=== PATIENT | male | born 1985 | race Caucasian/White ===

== ENCOUNTER 2016-11-20 21:07 | Emergency (ER) | payer SELFPAY ==
[~2016-11-20] VITALS: Ht 177.8 cm; Wt 100.4 kg
[~2016-11-20 21:07] MED LIST: HYDR25TA PO
[2016-11-20 22:15] VITALS: BP 138/42
--- NOTE | 2016-11-20 22:46 | PHYS DOC ---
General Chief Complaint: BACK PAIN - NO INJURY Stated Complaint: BACK PAIN Time Seen by MD: 22:27 Source: patient Problems: History of Present Illness Initial Comments Patient here for back pain. Patient had chronic problems for the last number of years with low back pain from known scoliosis. He's had an MRI and is has known bulging disks. He's been seen his primary care physician, is going to physical therapy, has had injections without help. He is barely scheduled for pain management next month. He is here now because of continued increasing back pain. It is located in the low back bilaterally, left greater than right, is now starting to creep up the right side as well. This is similar to his usual back pain which is getting worse. There is no new history of injury or trauma to the back. He's had no fever or chills. There is no URI symptoms or cough. There's no chest pain or shortness of breath. He has no nausea vomiting or abdominal pain. There is no abdominal pain. There's no change amount of bladder habits. He says he is going to the bathroom more frequently than normal, but has no dysuria and no incontinence. He denies any acute focal extremity or neurologic complaints. He says he has had some problems with shakiness and lower extremities at night, and is apparently being seen by a neurologist for evaluation Parkinson's. This is not acutely changed or different anyway. Patient 's been using muscle relaxer and a heating pad for this at home with some help. He says when he was a heating pad on all night feels better the morning. He is not on any current pain medication. He says tramadol as worked for him in the past. He notes no other increased or decreasing factors. Patient's past medical history is remarkable for chronic back pain issues, but no issues for which she seeking disability from blindness, and lower extremity weakness. He chews tobacco. He is nonuser of ethanol. Allergies: Coded Allergies: No Known Allergies (Verified Allergy, Unknown, 09/30/16) Past Medical History Medical History: other Surgical History: noncontributory Social History Smoker: chew Alcohol: none Review of Systems All Other Systems: Reviewed and Negative Physical Exam General Appearance: WD/WN, no apparent distress Neck: full range of motion, supple, normal inspection Respiratory: lungs clear, normal breath sounds, no respiratory distress Cardiovascular: regular rate, rhythm, no edema Gastrointestinal: non tender, soft, no organomegaly Back: no CVA tenderness, vertebral tenderness, other Extremities: non-tender, normal inspection, no pedal edema Neurologic/Psychiatric: no motor/sensory deficits, alert, normal mood/affect, oriented x 3 Skin: normal color Lymphatic: no adenopathy Comments Generally this is a well-developed well-nourished white male in no acute distress. Vitals are as noted. Pertinent findings on physical exam shows a chest clear. Cardiac exam shows regular rate and rhythm without murmur. The abdomen is soft and nontender without mass or megaly. There is no peritoneal findings. Back shows no distinct CVA tenderness. He is mildly tender over the lower lumbar midline spine and the bilateral low lumbar paraspinal regions, left greater than right. There is no signs of trauma noted. Externally show no rash, cyanosis, or edema. Lower extremity DTRs are 1+ over 4+ equal bilaterally. Strength 5 over 5 = system. There are no gross sensory deficits. Patient has some subjective weakness on straight leg raising which is chronic as noted in history, but there is no back pain on straight leg raising. He is awake alert oriented and cooperative. Remainder of physical exam is clinically unremarkable. Orders, Labs, Meds Old charts note so prior ER visit last month for restless leg syndrome. I discussed with the patient most likely cause visits to discomfort is probably exacerbation of his chronic low back pain. There is no history of new injury or trauma, no significant associated symptoms, and his neurologic exam is fully intact. No think any labs or imaging would be indicated at this time. I discussed with him and eventually happy to try to offer him some pain relief until his pain management appointment, and he does state Ultram has worked for him in the past. He denies any seizure history. I think it's reasonable to give him a supply of these tablets, have written a prescription for 60 Ultram to get him through the next several weeks. He has Flexeril at home already and is encouraged to continue to use that as well as a heating pad. I did provide cautious about leaving the heating pad on all night because of haines. He voices understanding need to follow up with primary care as well as pain management in November as planned or return to the ER sooner as needed for worsening anyway. He looks well, no acute discomfort distress, neurologically intact, okay for discharge home at this time. JOHN BROWN MD Nov 20, 2016 22:46
== END 2016-11-20 22:50 | disposition home or self-care (01) ==
LOC: ER 21:07
DX: G89.29 Other chronic pain (principal); M54.5 Low back pain; R53.1 Weakness; F17.220 Nicotine dependence, chewing tobacco, uncomplicated
CPT/HCPCS: 99283

== ENCOUNTER 2016-12-26 14:16 | Emergency (ER) | payer SELFPAY ==
[2016-12-26] MEDS ORDERED: DEXAMETHASONE SOD PHOS 4 MG/ML VIAL IM ONE (15:00)
[2016-12-26] MEDS ORDERED: DEXAMETHASONE SOD PHOS 10 MG/ML VIAL IM ONE (15:00)
[2016-12-26] MEDS ORDERED: ORPHENADRINE CITRATE 60 MG/2 ML VIAL. IM ONE (15:00)
[2016-12-26] MEDS ORDERED: HYDROcodone/APAP 7.5/325MG 1 TAB TABLET PO ONE (15:00)
--- NOTE | 2016-12-26 15:01 | PHYS DOC ---
Past History Past Medical History: Depression, Other Past Surgical History: Other Alcohol Use: Occasionally Drug Use: None Adult General Chief Complaint Chief Complaint: LOWER BACK PAIN OR INJURY HPI HPI Patient is a 31 year old male who presents with complaint of low back pain. Patient states that he has had low back problems for the past year. Patient states that he had MRI imaging approximately one year ago which showed bulging disks in multiple levels of his lumbar spine. Patient states that he has been receiving physical therapy and multiple modalities of medication treatment during the past year. Patient states that his symptoms started worsening 3 days ago. Patient states that his pain became worse at work, causing him to leave work early due to his pain. Patient rates pain currently is 8 out of 10 on my history taking. Patient states that he is having pain that radiates down into his right foot which has been present over the past year. Patient denies any loss of bowel or bladder control and denies saddle anesthesia. Review of Systems Review of Systems Constitutional: Denies fever or chills [] Eyes: Denies change in visual acuity, redness, or eye pain [] HENT: Denies nasal congestion or sore throat [] Respiratory: Denies cough or shortness of breath [] Cardiovascular: Denies chest pain or edema [] GI: Denies abdominal pain, nausea, vomiting, bloody stools or diarrhea [] : Denies dysuria or hematuria [] Musculoskeletal: Low back pain [] Integument: Denies rash or skin lesions [] Neurologic: Denies headache, focal weakness or sensory changes [] Current Medications Current Medications Current Medications Medications (Trade) Dose Ordered Sig/Miki Start Time Stop Time Status Last Admin Dose Admin Acetaminophen/ Hydrocodone Bitart (Lortab 7.5/325) 1 tab 1X ONCE 12/26/16 15:00 12/26/16 15:01 Dexamethasone Sodium Phosphate (Decadron) 12 mg 1X ONCE 12/26/16 15:00 12/26/16 15:01 Orphenadrine Citrate (Norflex) 60 mg 1X ONCE 12/26/16 15:00 12/26/16 15:01 Allergies Allergies Allergies Coded Allergies Type Severity Reaction Last Updated Verified No Known Allergies Allergy Unknown 09/30/16 Yes Physical Exam Physical Exam Constitutional: Alert, afebrile, appears in moderate discomfort. [] HENT: Normocephalic, atraumatic, bilateral external ears normal, oropharynx moist, no oral exudates, nose normal. [] Eyes: PERRLA, EOMI, conjunctiva normal, no discharge. [] Neck: Normal range of motion, no tenderness, supple, no stridor. [] Cardiovascular:Heart rate regular rhythm, no murmur [] Lungs & Thorax: Bilateral breath sounds clear to auscultation [] Abdomen: Bowel sounds normal, soft, no tenderness, no masses, no pulsatile masses. [] Skin: Warm, dry, no erythema, no rash. [] Back: Right lower lumbar paraspinous muscle tenderness to palpation, no midline tenderness, no flank ecchymosis, positive straight leg test in right lower extremity. [] Extremities: No tenderness, no cyanosis, no clubbing, ROM intact, no edema. [] Neurologic: Alert and oriented X 3, normal motor function, normal sensory function, no focal deficits noted. [] Current Patient Data Vital Signs Vital Signs Date Time Temp Pulse Resp B/P (MAP) Pulse Ox O2 Delivery O2 Flow Rate FiO2 12/26/16 15:00 0 97 Room Air Lab Results Current Medications Medications (Trade) Dose Ordered Sig/Miki Route PRN Reason Start Time Stop Time Status Last Admin Dose Admin Orphenadrine Citrate (Norflex) 60 mg 1X ONCE IM 12/26/16 15:00 12/26/16 15:01 DC 12/26/16 15:00 Dexamethasone Sodium Phosphate (Decadron) 12 mg 1X ONCE IM 12/26/16 15:00 12/26/16 15:00 DC Acetaminophen/ Hydrocodone Bitart (Lortab 7.5/325) 1 tab 1X ONCE PO 12/26/16 15:00 12/26/16 15:01 DC 12/26/16 15:00 Dexamethasone Sodium Phosphate (Decadron) 12 mg 1X ONCE IM 12/26/16 15:00 12/26/16 15:01 DC 12/26/16 15:00 EKG EKG Not performed [] Radiology/Procedures Radiology/Procedures Not performed [] Course & Med Decision Making Course & Med Decision Making Pertinent Labs and Imaging studies reviewed. (See chart for details) Patient was given IM Decadron, Norflex, and oral hydrocodone. On reevaluation, patient's pain has improved at this time. The patient will be discharged with prescriptions for [place] and prednisone taper. Advise follow-up in 3-5 days patient's primary doctor and return to emergency department for any worsening symptoms. Patient voiced understanding and in agreement with treatment plan. Dragon Disclaimer Dragon Disclaimer This chart was dictated in whole or in part using Voice Recognition software in a busy, high-work load, and often noisy Emergency Department environment. It may contain unintended and wholly unrecognized errors or omissions. Departure Departure: Impression: Primary Impression: Acute exacerbation of chronic low back pain Disposition: HOME, SELF-CARE Condition: IMPROVED Referrals: ANGELA MOORE MD (PCP) Patient Instructions: Back Pain, Adult Additional Instructions: Follow-up with primary doctor in 3-5 days for reevaluation. Return to the emergency department for any worsening symptoms. Scripts Hydrocodone Bit/Acetaminophen (NORCO 5-325 TABLET) 1 Each Tablet 1-2 TAB PO Q4-6HRS Y for PAIN, #20 TAB Prov: HAYLEE WORLEY MD 12/26/16 Prednisone (PREDNISONE) 10 Mg Tablet 10 MG PO UD for PREDNISONE TAPER, #39 TAB 0 Refills Take 3 tablets by mouth twice a day for 3 days, then take 2 tablets by mouth twice a day for 3 days, then take 1 tablet by mouth twice a day for 3 days, then take 1 tablet by mouth daily x 3 days, then stop. Prov: HAYLEE WORLEY MD 12/26/16 HAYLEE WORLEY MD December 26, 2016 15:01
[2016-12-26] MEDS ORDERED: HYDR-971 PO (15:31)
[2016-12-26] MEDS ORDERED: PRED-220 PO (15:31)
[2016-12-26 15:42] VITALS: BP 118/71
== END 2016-12-26 15:42 | disposition home or self-care (01) ==
LOC: ER 14:16
DX: G89.29 Other chronic pain (principal); M54.5 Low back pain
CPT/HCPCS: 96372; 99284; J1100; J2360

== ENCOUNTER 2017-04-18 12:52 | Emergency (ER) | payer SELFPAY ==
[~2017-04-18 12:52] MED LIST changes: +HYDR-971 PO; +PRED-220 PO
[2017-04-18 13:00] VITALS: BP 150/91
[2017-04-18] MEDS ORDERED: PRED-220 PO (13:43)
--- NOTE | 2017-04-18 13:43 | PHYS DOC ---
Past History Past Medical History: Depression, Other Past Surgical History: Other Alcohol Use: Occasionally Drug Use: Marijuana Adult General Chief Complaint Chief Complaint: BACK PAIN - NO INJURY HPI HPI Patient is a 31-year-old man who has chronic back pain, presents with "really bad" pain in his lower back which goes down at the back of his right leg for about one week. The pain shooting down his right leg is new for him, he says he has never had it before. He does see Dr. Valverde for back pain and primary care, he has seen a chiropractor, physical therapy, he has had an MRI, he is applying for disability, he was sent to pain management but he can't afford to see them. Pt denies bowel or bladder incontinence. Chart review shows the patient was seen here once in the past for radiculopathy and given a course of prednisone. When I reminded him of that, the patient did recall that, but that is not typical for his back pain. He does recall that the prednisone did help him he believes. Review of Systems Review of Systems Constitutional: Denies fever or chills [] : Denies bowel or bladder incontinence Musculoskeletal: As in history of present illness Allergies Allergies Allergies Coded Allergies Type Severity Reaction Last Updated Verified No Known Allergies Allergy Unknown 09/30/16 Yes Physical Exam Physical Exam Constitutional: Well developed, well nourished, no acute distress, non-toxic appearance. Alert, mentating normally, ambulatory. HENT: Normocephalic, atraumatic, bilateral external ears normal, nose normal. [ ] Eyes: conjunctiva normal, no discharge. [] Neck: Normal range of motion, no stridor. [] Skin: Warm, dry, no erythema, no rash. [] Extremities: No tenderness, no cyanosis, no clubbing, ROM intact, no edema. [] Neurologic: Alert and oriented X 3, normal motor function, normal sensory function, no focal deficits noted. [] Strength normal and 5 over 5 for extension of both legs against resistance and dorsiflexion of both great toes against resistance. DTRs 1-2 over 4 and equal bilaterally at both knees. EKG EKG [] Radiology/Procedures Radiology/Procedures [] Course & Med Decision Making Course & Med Decision Making Pertinent Labs and Imaging studies reviewed. (See chart for details) 31-year-old male with a history of chronic back pain presents with a more acute episode of right lumbar radiculopathy. We will try a short course of prednisone for that. I encouraged follow-up with his primary care doctor and adherence to plans that he has made with his PCP. See instructions for plan. [] Dragon Disclaimer Dragon Disclaimer This chart was dictated in whole or in part using Voice Recognition software in a busy, high-work load, and often noisy Emergency Department environment. It may contain unintended and wholly unrecognized errors or omissions. Departure Departure: Impression: Primary Impression: Chronic back pain Additional Impression: Lumbar back pain with radiculopathy affecting right lower extremity Disposition: HOME, SELF-CARE Condition: STABLE Referrals: ANGELA VALVERDE MD (PCP) Patient Instructions: Lumbosacral Radiculopathy Additional Instructions: It is important to continue to follow-up with your primary care doctor for chronic pain. If you are not able to see the specialist, return to see your primary care doctor for continuing care. Scripts Prednisone (PREDNISONE) 10 Mg Tablet 10 MG PO UD for PREDNISONE TAPER, #39 TAB 0 Refills Take 3 tablets by mouth twice a day for 3 days, then take 2 tablets by mouth twice a day for 3 days, then take 1 tablet by mouth twice a day for 3 days, then take 1 tablet by mouth daily x 3 days, then stop. Prov: JULIA SIDDIQI MD 04/18/17 Problem Qualifiers JULIA SIDDIQI MD Apr 18, 2017 13:43
== END 2017-04-18 13:55 | disposition home or self-care (01) ==
LOC: ER 12:52
DX: M54.16 Radiculopathy, lumbar region (principal); G89.29 Other chronic pain
CPT/HCPCS: 99283

== ENCOUNTER 2018-03-02 13:54 | Emergency (ER) | payer SELFPAY ==
[~2018-03-02] VITALS: Ht 177.8 cm; Wt 97.2 kg
[2018-03-02] MEDS ORDERED: IV NORMAL SALINE 1,000ML 1,000 ML IV ONE ×2 (14:15→15:30)
[2018-03-02] MEDS ORDERED: ONDANSETRON PF 4 MG/2 ML VIAL. IV ONE (14:30)
[2018-03-02 14:42] LABS: BASO % 0 % (0-3); EOS # 0.1 x10^3/uL (0.0-0.7); EOS % 1 % (0-3); HEMATOCRIT 49.1 % (39.0-53.0); HEMOGLOBIN 16.9 g/dL (13.0-17.5); LYMPH # 0.6 x10^3/uL (1.0-4.8); LYMPH % 6 % (24-48); MEAN CORPUSCULAR HEMOGLOBIN 29 pg (25-35); MEAN CORPUSCULAR HGB CONC 35 g/dL (31-37); MEAN CORPUSCULAR VOLUME 83 fL (79-100); MONO # 1.5 x10^3/uL (0.0-1.1); MONO % 14 % (0-9); NEUT # 8.7 x10^3uL (1.8-7.7); NEUT % 79 % (31-73); PLATELET COUNT 395 x10^3/uL (140-400); RED BLOOD COUNT 5.93 x10^6/uL (4.30-5.70); RED CELL DISTRIBUTION WIDTH 13.3 % (11.5-14.5)
[2018-03-02 14:56] LABS: ALBUMIN 4.4 g/dL (3.4-5.0); CALCIUM 9.8 mg/dL (8.5-10.1); CREATININE 1.3 mg/dL (0.7-1.3); DIRECT BILIRUBIN 0.2 mg/dL (0.0-0.2); GFR 63.2; POTASSIUM 3.8 mmol/L (3.5-5.1); TOTAL BILIRUBIN 0.7 mg/dL (0.2-1.0); TOTAL PROTEIN 8.3 g/dL (6.4-8.2)
[2018-03-02] MEDS ORDERED: IOHEXOL 300 MG/ML 75 ML VIAL. IV ONE (16:00)
--- NOTE | 2018-03-02 16:26 | RAD ---
CT abdomen and pelvis with contrast History: Abdominal pain, nausea and vomiting and diarrhea for 3 days Technique: After the administration of intravenous contrast, CT imaging was performed of the abdomen and pelvis. No oral contrast was given as per request. Multiplanar images are reviewed. Exposure: One or more of the following individualized dose reduction techniques were utilized for this examination: 1. Automated exposure control 2. Adjustment of the mA and/or kV according to patient size 3. Use of iterative reconstruction technique. Contrast: 75 cc Omnipaque 300 Comparison: None Findings: There is mild motion. There is no significant abnormality of the visualized lung bases. There is no significant abnormality of the liver, spleen, pancreas, adrenal glands. Both kidneys enhance without hydronephrosis. There is slightly contracted appearance of the gallbladder. Accurate evaluation of bowel is limited without oral contrast. There is gastric distention. Small large bowel is not significantly dilated. There is no free air or free fluid. There are some air-fluid levels in the colon, also some fluid in the small bowel. Normal appendix is visualized without adjacent inflammatory change. There is minimal fat right inguinal canal, no bowel. Impression: 1. There is no CT evidence of acute appendicitis. There is some fluid in the bowel, could be seen with diarrheal state. There is gastric distention. Electronically signed by: Jeff Koch MD (03/02/2018 4:23 PM) [id number]
[2018-03-02 17:04] LABS: BILIRUBIN,URINE NEG (NEG); CLARITY,URINE HAZY; COLOR,URINE YELLOW; GLUCOSE,URINE NEG (NEG)
[2018-03-02 17:05] LABS: BACTERIA,URINE 0 /HPF (0-FEW); HYALINE CASTS, URINE FEW /HPF; NITRITE,URINE NEG (NEG); UROBILINOGEN,URINE 0.2 mg/dL (0.2 mg/dL)
[2018-03-02 17:20] LABS: % BANDS 33 % (0-9); % LYMPHS 4 % (24-48); % MONOS 13 % (0-10); % SEGS 50 % (35-66)
[2018-03-02 17:21] LABS: PLT ESTIMATE ADEQUATE (ADEQUATE)
[2018-03-02] MEDS ORDERED: ONDA4TAB7 PO (17:24)
[2018-03-02] MEDS ORDERED: HYDR-2758 PO (17:24)
[2018-03-02 17:34] VITALS: BP 118/64
--- NOTE | 2018-03-02 17:34 | PHYS DOC ---
Past History Past Medical History: Other Past Surgical History: Other Alcohol Use: None Drug Use: None Adult General Chief Complaint Chief Complaint: ABDOMINAL PAIN HPI HPI 32-year-old male presenting the emergency department today with watery diarrhea since Thursday. He has mild abdominal pain that is sharp shooting in the left lower quadrant and without alleviating factors. He denies any fevers or chills. He has had a few episodes of nausea and vomiting. He denies chest pain or shortness of breath. He denies testicular pain. Review of systems is negative for chest pain shortness of breath fevers or chills. All other review of systems is negative unless otherwise noted in history of present illness. ED course: 32-year-old male presenting the emergency department today with left lower quadrant abdominal pain. On arrival he is afebrile with a normal heart rate saturating well on room air. Abdominal exam shows a soft nondistended nontender abdomen without rebound tenderness or guarding. Negative McBurney's point. Negative Coronado sign. Blood work obtained along with CT abdomen pelvis. CBC shows normal white blood cell count. Mild neutrophilia. Bandemia present as well. Urinalysis negative nitrite and negative leuk esterase. Not suggestive of infection. Chemistry panel unremarkable. CT of the abdomen pelvis shows no signs of acute appendicitis. On reexamination abdomen continues to be soft and nontender. He is able to ambulate in the emergency department without any difficulty. He is feeling better.The patient has been examined and was not found to have an emergency medical condition. The patient was then discharged home in stable condition to follow up with their primary care physician over the next 2-3 days. They were to return if their symptoms worsened or if they were concerned for any reason. Early appendicitis return precautions given. They were also instructed to return to the emergency department if they were unable to get the recommended and appropriate follow-up. [id number] discharge instructions and return precautions were given. Patient's questions were answered to their satisfaction. Patient is comfortable with plan. Review of Systems Review of Systems SEE ABOVE. Current Medications Current Medications Current Medications Medications (Trade) Dose Ordered Sig/Miki Start Time Stop Time Status Last Admin Dose Admin Fentanyl Citrate (Fentanyl 2ml Vial) 50 mcg PRN Q30MIN PRN 03/02/18 14:30 03/02/18 15:40 50 MCG Iohexol (Omnipaque 300 Mg/ml) 75 ml 1X ONCE 03/02/18 16:00 03/02/18 16:01 DC 03/02/18 16:01 75 ML Ondansetron HCl (Zofran) 4 mg 1X ONCE 03/02/18 14:30 03/02/18 14:31 DC 03/02/18 14:30 4 MG Sodium Chloride 1,000 ml @ 1,000 mls/hr 1X ONCE 03/02/18 15:30 03/02/18 16:29 DC 03/02/18 15:37 1,000 MLS/HR Allergies Allergies Allergies Coded Allergies Type Severity Reaction Last Updated Verified No Known Allergies Allergy Unknown 09/30/16 Yes Physical Exam Physical Exam SEE ABOVE Constitutional: Well developed, well nourished, no acute distress, non-toxic appearance. [] HENT: Normocephalic, atraumatic, bilateral external ears normal, oropharynx moist, no oral exudates, nose normal. [] Eyes: PERRLA, EOMI, conjunctiva normal, no discharge. [] Neck: Normal range of motion, no tenderness, supple, no stridor. [] Cardiovascular:Heart rate regular rhythm, no murmur [] Lungs & Thorax: Bilateral breath sounds clear to auscultation [] Abdomen: Bowel sounds normal, soft, no tenderness, no masses, no pulsatile masses. [] Skin: Warm, dry, no erythema, no rash. [] Back: No tenderness, no CVA tenderness. [] Extremities: No tenderness, no cyanosis, no clubbing, ROM intact, no edema. [] Neurologic: Alert and oriented X 3, normal motor function, normal sensory function, no focal deficits noted. [] Psychologic: Affect normal, judgement normal, mood normal. [] Current Patient Data Vital Signs Vital Signs Date Time Temp Pulse Resp B/P (MAP) Pulse Ox O2 Delivery O2 Flow Rate FiO2 03/02/18 16:56 80 20 120/79 (93) 98 03/02/18 15:40 Room Air 03/02/18 14:16 98.7 Lab Results Laboratory Tests Test 03/02/18 14:20 03/02/18 16:25 White Blood Count 11.0 x10^3/uL (4.0-11.0) Red Blood Count 5.93 x10^6/uL (4.30-5.70) H Hemoglobin 16.9 g/dL (13.0-17.5) Hematocrit 49.1 % (39.0-53.0) Mean Corpuscular Volume 83 fL (79-100) Mean Corpuscular Hemoglobin 29 pg (25-35) Mean Corpuscular Hemoglobin Concent 35 g/dL (31-37) Red Cell Distribution Width 13.3 % (11.5-14.5) Platelet Count 395 x10^3/uL (140-400) Neutrophils (%) (Auto) 79 % (31-73) H Lymphocytes (%) (Auto) 6 % (24-48) L Monocytes (%) (Auto) 14 % (0-9) H Eosinophils (%) (Auto) 1 % (0-3) Basophils (%) (Auto) 0 % (0-3) Neutrophils # (Auto) 8.7 x10^3uL (1.8-7.7) H Lymphocytes # (Auto) 0.6 x10^3/uL (1.0-4.8) L Monocytes # (Auto) 1.5 x10^3/uL (0.0-1.1) H Eosinophils # (Auto) 0.1 x10^3/uL (0.0-0.7) Basophils # (Auto) 0.0 x10^3/uL (0.0-0.2) Segmented Neutrophils % 50 % (35-66) Band Neutrophils % 33 % (0-9) H Lymphocytes % 4 % (24-48) L Monocytes % 13 % (0-10) H Platelet Estimate Adequate (ADEQUATE) Sodium Level 138 mmol/L (136-145) Potassium Level 3.8 mmol/L (3.5-5.1) Chloride Level 102 mmol/L (98-107) Carbon Dioxide Level 24 mmol/L (21-32) Anion Gap 12 (6-14) Blood Urea Nitrogen 10 mg/dL (8-26) Creatinine 1.3 mg/dL (0.7-1.3) Estimated GFR (Cockcroft-Gault) 63.2 Glucose Level 99 mg/dL (70-99) Calcium Level 9.8 mg/dL (8.5-10.1) Total Bilirubin 0.7 mg/dL (0.2-1.0) Direct Bilirubin 0.2 mg/dL (0.0-0.2) Aspartate Amino Transferase (AST) 9 U/L (15-37) L Alanine Aminotransferase (ALT) 16 U/L (16-63) Alkaline Phosphatase 79 U/L (46-116) Total Protein 8.3 g/dL (6.4-8.2) H Albumin 4.4 g/dL (3.4-5.0) Lipase 76 U/L (73-393) Urine Collection Type Unknown Urine Color Yellow Urine Clarity Hazy Urine pH 5.0 Urine Specific [place] 1.015 Urine Protein 30 mg/dl (NEG-TRACE) Urine Glucose (UA) Neg mg/dL (NEG) Urine Ketones (Stick) Neg mg/dL (NEG) Urine Blood Trace (NEG) Urine Nitrite Neg (NEG) Urine Bilirubin Neg (NEG) Urine Urobilinogen Dipstick 0.2 mg/dL (0.2 mg/dL) Urine Leukocyte Esterase Neg (NEG) Urine RBC 1-2 /HPF (0-2) Urine WBC 1-4 /HPF (0-4) Urine Squamous Epithelial Cells None /LPF Urine Bacteria 0 /HPF (0-FEW) Urine Hyaline Casts Few /HPF Urine Mucus Marked /LPF EKG EKG [] Radiology/Procedures Radiology/Procedures [] Course & Med Decision Making Course & Med Decision Making Pertinent Labs and Imaging studies reviewed. (See chart for details) [] Dragon Disclaimer Dragon Disclaimer This electronic medical record was generated, in whole or in part, using a voice recognition dictation system. Departure Departure: Impression: Primary Impression: Diarrhea Additional Impressions: Abdominal pain Nausea Disposition: 01 HOME, SELF-CARE Condition: STABLE Referrals: ANGELA MOORE MD (PCP) Patient Instructions: Abdominal Pain, Possible Early Appendicitis Additional Instructions: Thank you for allowing us to participate in your care today. Return to the emergency department you have any new or worsening symptoms, or if you are concerned for any reason. Return to emergency department if you have any new or concerning symptoms including but not limited to fever, chills, nausea, vomiting, intractable pain, any new rashes, chest pain, shortness of air , uncontrolled bleeding, difficulty breathing, and/or vision loss. Follow up with your primary care physician within 3 days. Call your Primary Doctor tomorrow and inform them of your visit today. If you do not have a primary care provider we are happy to provide you with a list of our primary care providers contact information. This condition should be evaluated by your primary care physician and any recommended consulting services for continued management within 2-3 days after discharge. If at any time, you are having difficulty getting into your primary care doctor or a specialist, return to the emergency department. You may have been prescribed medication or given medication in the emergency department that can change in your level of thinking and ability to operate machinery. Many prescribed medications can cause this. Some commonly prescribed medications include hydrocodone, ativan, and benadryl. Be sure to check with your pharmacist and ask if the medications you've prescribed can affect your level of consciousness. I recommend not operating heavy machinery or driving while on medication such as these. Scripts Ondansetron Hcl (ZOFRAN) 4 Mg Tablet 1 TAB PO PRN Q6HRS PRN for NAUSEA, #6 TAB Prov: LEO ALONZO MD 03/02/18 Hydrocodone Bit/Acetaminophen (HYDROCODONE-APAP 5-325 ) 1 Each Tablet 1 TAB PO PRN Q6HRS PRN for PAIN, #10 TAB 0 Refills Prov: LEO ALONZO MD 03/02/18 Problem Qualifiers LEO ALONZO MD Mar 02, 2018 17:34
--- NOTE | 2018-03-02 17:59 | PHYS DOC ---
Past History Past Medical History: Other Past Surgical History: Other Alcohol Use: None Drug Use: None Adult General Chief Complaint Chief Complaint: ABDOMINAL PAIN Current Medications Current Medications Current Medications Medications (Trade) Dose Ordered Sig/Miki Start Time Stop Time Status Last Admin Dose Admin Fentanyl Citrate (Fentanyl 2ml Vial) 50 mcg PRN Q30MIN PRN 03/02/18 14:30 03/02/18 15:40 50 MCG Iohexol (Omnipaque 300 Mg/ml) 75 ml 1X ONCE 03/02/18 16:00 03/02/18 16:01 DC 03/02/18 16:01 75 ML Ondansetron HCl (Zofran) 4 mg 1X ONCE 03/02/18 14:30 03/02/18 14:31 DC 03/02/18 14:30 4 MG Sodium Chloride 1,000 ml @ 1,000 mls/hr 1X ONCE 03/02/18 15:30 03/02/18 16:29 DC 03/02/18 15:37 1,000 MLS/HR Allergies Allergies Allergies Coded Allergies Type Severity Reaction Last Updated Verified No Known Allergies Allergy Unknown 09/30/16 Yes Current Patient Data Vital Signs Vital Signs Date Time Temp Pulse Resp B/P (MAP) Pulse Ox O2 Delivery O2 Flow Rate FiO2 03/02/18 16:56 80 20 120/79 (93) 98 03/02/18 15:40 Room Air 03/02/18 14:16 98.7 Lab Results Laboratory Tests Test 03/02/18 14:20 03/02/18 16:25 White Blood Count 11.0 x10^3/uL (4.0-11.0) Red Blood Count 5.93 x10^6/uL (4.30-5.70) H Hemoglobin 16.9 g/dL (13.0-17.5) Hematocrit 49.1 % (39.0-53.0) Mean Corpuscular Volume 83 fL (79-100) Mean Corpuscular Hemoglobin 29 pg (25-35) Mean Corpuscular Hemoglobin Concent 35 g/dL (31-37) Red Cell Distribution Width 13.3 % (11.5-14.5) Platelet Count 395 x10^3/uL (140-400) Neutrophils (%) (Auto) 79 % (31-73) H Lymphocytes (%) (Auto) 6 % (24-48) L Monocytes (%) (Auto) 14 % (0-9) H Eosinophils (%) (Auto) 1 % (0-3) Basophils (%) (Auto) 0 % (0-3) Neutrophils # (Auto) 8.7 x10^3uL (1.8-7.7) H Lymphocytes # (Auto) 0.6 x10^3/uL (1.0-4.8) L Monocytes # (Auto) 1.5 x10^3/uL (0.0-1.1) H Eosinophils # (Auto) 0.1 x10^3/uL (0.0-0.7) Basophils # (Auto) 0.0 x10^3/uL (0.0-0.2) Platelet Estimate Pending Sodium Level 138 mmol/L (136-145) Potassium Level 3.8 mmol/L (3.5-5.1) Chloride Level 102 mmol/L (98-107) Carbon Dioxide Level 24 mmol/L (21-32) Anion Gap 12 (6-14) Blood Urea Nitrogen 10 mg/dL (8-26) Creatinine 1.3 mg/dL (0.7-1.3) Estimated GFR (Cockcroft-Gault) 63.2 Glucose Level 99 mg/dL (70-99) Calcium Level 9.8 mg/dL (8.5-10.1) Total Bilirubin 0.7 mg/dL (0.2-1.0) Direct Bilirubin 0.2 mg/dL (0.0-0.2) Aspartate Amino Transferase (AST) 9 U/L (15-37) L Alanine Aminotransferase (ALT) 16 U/L (16-63) Alkaline Phosphatase 79 U/L (46-116) Total Protein 8.3 g/dL (6.4-8.2) H Albumin 4.4 g/dL (3.4-5.0) Lipase 76 U/L (73-393) Urine Collection Type Unknown Urine Color Yellow Urine Clarity Hazy Urine pH 5.0 Urine Specific [place] 1.015 Urine Protein 30 mg/dl (NEG-TRACE) Urine Glucose (UA) Neg mg/dL (NEG) Urine Ketones (Stick) Neg mg/dL (NEG) Urine Blood Trace (NEG) Urine Nitrite Neg (NEG) Urine Bilirubin Neg (NEG) Urine Urobilinogen Dipstick 0.2 mg/dL (0.2 mg/dL) Urine Leukocyte Esterase Neg (NEG) Urine RBC 1-2 /HPF (0-2) Urine WBC 1-4 /HPF (0-4) Urine Squamous Epithelial Cells None /LPF Urine Bacteria 0 /HPF (0-FEW) Urine Hyaline Casts Few /HPF Urine Mucus Marked /LPF EKG EKG [] Radiology/Procedures Radiology/Procedures [] Course & Med Decision Making Course & Med Decision Making Pertinent Labs and Imaging studies reviewed. (See chart for details) [] Dragon Disclaimer Dragon Disclaimer This electronic medical record was generated, in whole or in part, using a voice recognition dictation system. Departure Departure: Impression: Primary Impression: Acute diarrhea Additional Impression: Abdominal pain Disposition: HOME, SELF-CARE Condition: STABLE Referrals: ANGELA MOORE MD (PCP) Patient Instructions: Abdominal Pain, Possible Early Appendicitis, Diarrhea, [id number] Additional Instructions: Thank you for allowing us to participate in your care today. Return to the emergency department you have any new or worsening symptoms, or if you are concerned for any reason. Return to emergency department if you have any new or concerning symptoms including but not limited to fever, chills, nausea, vomiting, intractable pain, any new rashes, chest pain, shortness of air , uncontrolled bleeding, difficulty breathing, and/or vision loss. Follow up with your primary care physician within 3 days. Call your Primary Doctor tomorrow and inform them of your visit today. If you do not have a primary care provider we are happy to provide you with a list of our primary care providers contact information. This condition should be evaluated by your primary care physician and any recommended consulting services for continued management within 2-3 days after discharge. If at any time, you are having difficulty getting into your primary care doctor or a specialist, return to the emergency department. You may have been prescribed medication or given medication in the emergency department that can change in your level of thinking and ability to operate machinery. Many prescribed medications can cause this. Some commonly prescribed medications include hydrocodone, ativan, and benadryl. Be sure to check with your pharmacist and ask if the medications you've prescribed can affect your level of consciousness. I recommend not operating heavy machinery or driving while on medication such as these. Scripts Ondansetron Hcl (ZOFRAN) 4 Mg Tablet 1 TAB PO PRN Q6HRS PRN for NAUSEA, #6 TAB Prov: LEO ALONZO MD 03/02/18 Hydrocodone Bit/Acetaminophen (HYDROCODONE-APAP 5-325 ) 1 Each Tablet 1 TAB PO PRN Q6HRS PRN for PAIN, #10 TAB 0 Refills Prov: LEO ALONZO MD 03/02/18 Problem Qualifiers LEO ALONZO MD Mar 02, 2018 17:59
== END 2018-03-02 17:37 | disposition home or self-care (01) ==
LOC: ER 13:54
DX: R19.7 Diarrhea, unspecified (principal); R11.2 Nausea with vomiting, unspecified
CPT/HCPCS: 36415; 74177; 80048; 80076; 81001; 83690; 85007; 85025; 96361; 96374; 96375; 99285; J2405; J3010; Q9967; J7030

== ENCOUNTER 2019-03-13 10:42 | Emergency (ER) | payer SELFPAY ==
[~2019-03-13] VITALS: Ht 177.8 cm; Wt 85.4 kg
[~2019-03-13 10:42] MED LIST changes: +HYDR-2155 PO; +HYDR-3165 PO; -HYDR-971 PO; +ONDA4TAB7 PO
[2019-03-13 10:45] VITALS: BP 119/81
[2019-03-13] MEDS ORDERED: MAGN296S9 PO (11:15)
[2019-03-13] MEDS ORDERED: GLYC1SUP RC (11:15)
--- NOTE | 2019-03-13 11:15 | PHYS DOC ---
Past History Past Medical History: Constipation, Other Past Surgical History: Other Smoking: Chew Alcohol Use: None Drug Use: None Adult General Chief Complaint Chief Complaint: CONSTIPATION HPI HPI Patient is a 33-year-old male presents complaining of constipation. His last bowel movement was 5 days ago. He feels pressure but nothing comes out since yesterday. His normal bowel habits is to have a bowel movement every 3 days or so. Denies any nausea or vomiting. No previous surgical history on his abdomen. No dysuria. Notes that he had slightly darker than usual urine yesterday. Reports that his bowel movements are typically hard. His diet consists of ROM and noodles when he gets up as his first meal of the day, either fast food or frequently, not much in the way of fresh fruits or vegetables in his diet. He is normally on stool softeners, the Equate brand. Symptoms are mild to moderate in nature.[] Review of Systems Review of Systems Constitutional: Denies fever or chills [] Eyes: Denies change in visual acuity, redness, or eye pain [] HENT: Denies nasal congestion or sore throat [] Respiratory: Denies cough or shortness of breath [] Cardiovascular: No chest pain or palpitations[] GI: See history of present illness[] : Denies dysuria or hematuria [] Musculoskeletal: Denies back pain or joint pain [] Integument: Denies rash or skin lesions [] Neurologic: Denies headache, focal weakness or sensory changes [] Endocrine: Denies polyuria or polydipsia [] All other systems were reviewed and found to be within normal limits, except as documented in this note. Allergies Allergies Allergies Coded Allergies Type Severity Reaction Last Updated Verified No Known Allergies Allergy Unknown 09/30/16 Yes Physical Exam Physical Exam Constitutional: Well developed, well nourished, no acute distress, non-toxic appearance. [] HENT: Normocephalic, atraumatic, bilateral external ears normal, oropharynx moist, no oral exudates, nose normal. [] Eyes: PERRLA, EOMI, conjunctiva normal, no discharge. [] Neck: Normal range of motion, no tenderness, supple, no stridor. [] Cardiovascular:Heart rate regular rhythm, no murmur [] Lungs & Thorax: Bilateral breath sounds clear to auscultation [] Abdomen: Bowel sounds normal, soft, no tenderness, no fullness, no rebound, no guarding, no rigidity, sits up and lays back without any difficulty, no masses, no pulsatile masses. [] Skin: Warm, dry, no erythema, no rash. [] Back: No tenderness, no CVA tenderness. [] Extremities: No tenderness, no cyanosis, no clubbing, ROM intact, no edema. [] Neurologic: Alert and oriented X 3, normal motor function, normal sensory function, no focal deficits noted. [] Psychologic: Affect normal, judgement normal, mood normal. [] Current Patient Data Vital Signs Vital Signs Date Time Temp Pulse Resp B/P (MAP) Pulse Ox O2 Delivery O2 Flow Rate FiO2 03/13/19 10:45 99.0 56 20 97 Room Air EKG EKG [] Radiology/Procedures Radiology/Procedures [] Course & Med Decision Making Course & Med Decision Making Pertinent Labs and Imaging studies reviewed. (See chart for details) Medical decision making: Patient with constipation with long-standing history of hard stools and poor diet as far as fiber. No evidence of an obstruction or perforation. We will attempt outpatient management and improvement in his diet.[] Dragon Disclaimer Dragon Disclaimer This electronic medical record was generated, in whole or in part, using a voice recognition dictation system. Departure Departure: Impression: Primary Impression: Constipation Disposition: 01 HOME, SELF-CARE Condition: IMPROVED Referrals: ANGELA MOORE MD (PCP) Follow-up in 2 days Patient Instructions: Constipation, Adult Additional Instructions: Drink plenty of fluids. Increase fiber in your diet. This can be done multiple ways including increasing fresh fruits and vegetables in your diet, avoiding fast food and boxed/prepackaged food, and eating cereal with "fiber" or "bran" in the name. Follow-up with your regular doctor in 2 days. Return to the ER if worsening discomfort or any other concerns. Scripts Glycerin (ADULT GLYCERIN) 1 Each Supp.rect 1 EACH RC TID PRN PRN for rectal pain, #1 PACKET Prov: MELANIE PADRON DO 03/13/19 Magnesium Citrate (MAGNESIUM CITRATE) 296 Ml Solution 296 ML PO ONCE for constipation, #296 ML Prov: MELANIE PADRON DO 03/13/19 Problem Qualifiers Primary Impression: Constipation Constipation type: unspecified constipation type Qualified Codes: K59.00 - Constipation, unspecified EIDENBERG,MELANIE DO Mar 13, 2019 11:15
[2019-03-13] MEDS ORDERED: MAGNESIUM CITRATE 296 ML SOLUTION. PO ONE (11:30)
== END 2019-03-13 11:20 | disposition home or self-care (01) ==
LOC: ER 10:42
DX: K59.00 Constipation, unspecified (principal); F17.220 Nicotine dependence, chewing tobacco, uncomplicated
CPT/HCPCS: 99283

== ENCOUNTER 2020-06-12 22:19 | Emergency (ER) | payer SELFPAY ==
[~2020-06-12] VITALS: Ht 177.8 cm; Wt 86.0 kg
[~2020-06-12 22:19] MED LIST changes: +GLYC1SUP RC; +MAGN296S68 PO
[2020-06-12 22:20] VITALS: BP 150/92
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
[2020-06-12] MEDS ORDERED: DIPH,PERTUSS(ACELL),TET VAC/PF 0.5 ML SYRINGE. VAX IM ONE (23:30)
== END 2020-06-12 23:33 | disposition home or self-care (01) ==
LOC: ER 22:19
DX: S01.112A Laceration without foreign body of left eyelid and periocular area, initial encounter (principal); S01.412A Laceration without foreign body of left cheek and temporomandibular area, initial encounter; S11.91XA Laceration without foreign body of unspecified part of neck, initial encounter; Y08.89XA Assault by other specified means, initial encounter; Y93.89 Activity, other specified; Y92.89 Other specified places as the place of occurrence of the external cause; Y99.8 Other external cause status; F17.220 Nicotine dependence, chewing tobacco, uncomplicated
CPT/HCPCS: 90471; 90715; 99283

== ENCOUNTER 2021-03-20 23:20 | Emergency (ER) | payer SELFPAY ==
[~2021-03-20] VITALS: Ht 179.1 cm; Wt 78.9 kg
[2021-03-21 00:35] VITALS: BP 124/80
--- NOTE | 2021-03-21 00:37 | PHYS DOC ---
Past History Past Medical History: Constipation, Other Additional Past Medical Histor: drug abuse, hernia Past Surgical History: Other Additional Past Surgical Histo: eye surgery X 6 Smoking: Chew Alcohol Use: None Drug Use: None Adult General Chief Complaint Chief Complaint: GROIN PAIN HPI HPI Patient is a 35-year-old male who presented to the emergency department via EMS stating that he has a testicular hernia for the last 4 to 5 years. Allergies Allergies Allergies Coded Allergies Type Severity Reaction Last Updated Verified No Known Allergies Allergy Unknown 09/30/16 Yes Current Patient Data Vital Signs Vital Signs Date Time Temp Pulse Resp B/P (MAP) Pulse Ox O2 Delivery O2 Flow Rate FiO2 03/20/21 23:24 98.9 93 20 130/82 97 Room Air EKG EKG [] Radiology/Procedures Radiology/Procedures [] Heart Score C/O Chest Pain: N/A Risk Factors: Risk Factors: DM, Current or recent (<one month) smoker, HTN, HLP, family history of CAD, obesity. Risk Scores: Risk Factors: DM, Current or recent (<one month) smoker, HTN, HLP, family h istory of CAD, obesity. Course & Med Decision Making Course & Med Decision Making Patient is a 35-year-old male who presents endorsing testicular hernia for the last 4 to 5 years Vital signs not concerning. While in the emergency department, shortly after arrival patient stated that he is feeling much better and thinks it reduced on its own and would like to be discharged home and left without being seen by physician. [] Dragon Disclaimer Dragon Disclaimer This electronic medical record was generated, in whole or in part, using a voice recognition dictation system. Departure Departure: Impression: Primary Impression: Groin pain Disposition: LEFT WITHOUT BEING SEEN Condition: STABLE Referrals: ANGELA MOORE MD (PCP) AVINASH VALLECILLO MD Mar 21, 2021 00:36
== END 2021-03-21 00:38 | disposition left against medical advice (07) ==
LOC: ER 23:20
DX: R10.30 Lower abdominal pain, unspecified (principal); F17.220 Nicotine dependence, chewing tobacco, uncomplicated; Z53.21 Procedure and treatment not carried out due to patient leaving prior to being seen by health care provider

== ENCOUNTER 2021-03-28 13:08 | Emergency (ER) | payer SELFPAY ==
[~2021-03-28] VITALS: Ht 179.1 cm; Wt 78.9 kg
--- NOTE | 2021-03-28 13:29 | PHYS DOC ---
Past History Past Medical History: Constipation, Other Additional Past Medical Histor: drug abuse, hernia (KRISTAL STOCKTON APRN) Past Surgical History: Other Additional Past Surgical Histo: eye surgery X 6 (KRISTAL STOCKTON APRN) Smoking: Chew Alcohol Use: None Drug Use: None (KRISTAL STOCKTON APRN) Attending Co-Sign The patient was seen and interviewed as well as examined at the bedside. The chart was reviewed. The case was discussed. Agree with the plan of care. (MINISTERIO LIRIANO DO) General Adult EDM: Chief Complaint: ABDOMINAL PAIN HPI: HPI: Patient is a 35-year-old male who presents to the ER from EMS for abdominal pain. Per EMS patient was found curled up on the side of the road. Patient is complaining of lower abdominal pain that started 1/2 hours ago. Patient reports that he believes the pain is due to his hernia. Patient has a right inguinal hernia that occasionally pops out that causes him pain. Patient reports that he is able to reduce it himself typically. Patient reports pain is only with movement. He reports that when the pain did occur when he was walking on the side of the road he did vomit a little bit. Patient is also reporting dysuria. Patient is not having any pain, nausea, vomiting, diarrhea. (KRISTAL STOCKTON APRN) Review of Systems: Review of Systems: 14 body systems of the review of systems have been reviewed. See HPI for pertinent positive and negative responses, otherwise all other systems are negative, nonpertinent or noncontributory (KRISTAL STOCKTON APRN) Allergies: Allergies: Allergies Coded Allergies Type Severity Reaction Last Updated Verified No Known Allergies Allergy Unknown 09/30/16 Yes (KRISTAL STOCKTON APRN) Physical Exam: PE: Constitutional: Well developed, well nourished, no acute distress, non-toxic appearance. [] HENT: Normocephalic, atraumatic Eyes: PERRLA, conjunctiva normal, no discharge. [] Neck: Normal range of motion, no tenderness, supple, no stridor. [] Cardiovascular:Heart rate regular rhythm, no murmur [] Lungs & Thorax: Bilateral breath sounds clear to auscultation [] Abdomen: Bowel sounds normal, soft, no tenderness, no masses, no hernia palpated, no pulsatile masses. [] Skin: Warm, dry, no erythema, no rash. [] Back: Normal range of motion Extremities: No tenderness, no cyanosis, no clubbing, ROM intact, no edema. [] Neurologic: Alert and oriented X 3, normal motor function, normal sensory function, no focal deficits noted. [] Psychologic: Affect normal, judgement normal, mood normal. [] (KRISTAL STOCKTON APRN) Current Patient Data: Vital Signs: Vital Signs Date Time Temp Pulse Resp B/P (MAP) Pulse Ox O2 Delivery O2 Flow Rate FiO2 03/28/21 13:14 77 18 116/96 99 (KRISTAL STOCKTON APRN) EKG: EKG: [] (KRISTAL STOCKTON APRN) Radiology/Procedures: Radiology/Procedures: PROCEDURE: CT ABD PELV W/ IV CONTRST ONLY INDICATION: Reason: ABD PAIN CONTRAST ORDERED WAITING ON LABS / Spl. Instructions: / History: . COMPARISON: February 2018 TECHNIQUE: Axial CT images obtained through the abdomen and pelvis with contrast. One or more of the following individualized dose reduction techniques were utilized for this examination: 1. Automated exposure control; 2. Adjustment of the mA and/or kV according to patient size; 3. Use of iterative reconstruction technique. FINDINGS: Abdominal aorta is not aneurysmal. Small fat-containing right inguinal hernia. No peripancreatic fluid collection. Spleen unremarkable. Urinary bladder is somewhat distended at time of exam. No hydronephrosis. No periappendiceal inflammatory changes. No dilated loops of bowel to suggest obstruction. Osseous excrescence off of the left iliac wing. IMPRESSION: * No evidence of bowel obstruction or appendicitis. * Urinary bladder is dilated at time of exam. This could be from the patient not urinating recently unless they are having symptoms of poor emptying. Electronically signed by: Joel Johnson MD (03/28/2021 3:16 PM) [id number] DICTATED AND SIGNED BY: JOEL JOHNSON MD DATE: 03/28/21 1507 CC: ANGELA MOORE MD; KRISTAL STOCKTON APRN ~MTH0 0 [] (KRISTAL STOCKTON APRN) Heart Score: C/O Chest Pain: No Risk Factors: Risk Factors: DM, Current or recent (<one month) smoker, HTN, HLP, family history of CAD, obesity. Risk Scores: Score 0 - 3: 2.5% MACE over next 6 weeks - Discharge Home Score 4 - 6: 20.3% MACE over next 6 weeks - Admit for Clinical Observation Score 7 - 10: 72.7% MACE over next 6 weeks - Early Invasive Strategies (KRISTAL STOCKTON APRN) Course & Med Decision Making: Course & Med Decision Making Pertinent Labs and Imaging studies reviewed. (See chart for details) [] Patient is a 55-year-old male being seen in the ER patient was treated with a liter of fluid. Prior to arrival patient was also treated with Zofran from EMS. Lab work in the ER was unremarkable. CT scan was unremarkable for any acute findings. Patient's vital signs are stable and he is in no acute distress. I discussed with patient all findings and diagnostic testing as well as the need to follow-up with PCP for further evaluation and treatment or return to the ER if any new or worsening symptoms. Strict return precautions were also discussed at length. Patient voiced understanding and agreement with the plan. Patient is hemodynamically stable at the time of disposition. (KRISTAL STOCKTON APRN) Dragon Disclaimer: Dragon Disclaimer: This electronic medical record was generated, in whole or in part, using a voice recognition dictation system. (KRISTAL STOCKTON APRN) Departure Departure: Impression: Primary Impression: Abdominal pain Qualified Codes: R10.30 - Lower abdominal pain, unspecified Disposition: HOME / SELF CARE / HOMELESS Condition: GOOD Referrals: ANGELA MOORE MD (PCP) Patient Instructions: Abdominal Migraine, Hernia Additional Instructions: You were seen in the ER today for lower abdominal pain. Your work-up in the ER was unremarkable. Your physical exam was reassuring. You can take Tylenol or ibuprofen for your pain. You need to follow-up with your primary care provider tomorrow regarding your ER visit today. Please return to the ER if you develop uncontrollable nausea or vomiting, severe abdominal pain, blood in your stools or vomit, high fevers refractory to treatment, chest pain, shortness of breath. EMERGENCY DEPARTMENT GENERAL DISCHARGE INSTRUCTIONS Thank you for coming to [facility] (ED) today and trusting us with you care. We trust that you had a positivie experience in our Emergency Department. If you wish to speak to the department management, you may call the director at [phone]. YOUR FOLLOW UP INSTRUCTIONS ARE FOLLOWS: 1. Do you have a private Doctor? If you do not have a private doctor, please ask for a resource list of physicians or clinics that may be able to assist you with follow up care. 2. The Emergency Physician has interpreted your x-rays. The X-Ray specialist will also review them. If there is a change in the findings, you will be notified in 48 hours when at all possible. 3. A lab test or culture has been done, your results will be reviewed and you will be notified if you need a change in treatment. ADDITIONAL INSTRUCTIONS AND INFORMATION: 1. Your care today has been supervised by a physician who is specially trained in emergency care. Many problems require more than one evaluation for a complete diagnosis and treatment. We recommend that you schedule your follow up appointment as recommended to ensure complete treatment of you illness or injury. If you are unable to obtain follow up care and continue to have a problem, or if your condition worsens, we recommend that you return to the ED. 2. We are not able to safely determine your condition over the phone nor are we able to give sound medical advice over the phone. For these safety reasons, if you call for medical advice we will ask you to come to the ED for further evaluation. 3. If you have any questions regarding these discharge instructions please call the ED at [phone]. SAFETY INFORMATION: In the interest of safety, wellness, and injury prevention; we encourage you to wear your sealbelt, if you smoke; quite smoking, and we encourage family to use a protective helmet for bicycling and other sporting events that present an increased risk for head injury. IF YOUR SYMPTOMS WORSEN OR NEW SYMPTOMS DEVELOP, OR YOU HAVE CONCERNS ABOUT YOUR CONDITION; OR IF YOUR CONDITION WORSENS WHILE YOU ARE WAITING FOR YOUR FOLLOW UP APPOINTMENT; EITHER CONTACT YOUR PRIMARY CARE DOCTOR, THE PHYSICIAN WHOSE NAME AND NUMBER YOU WERE GIVEN, OR RETURN TO THE ED IMMEDIATELY. KRISTAL STOCKTON APRN Mar 28, 2021 13:29 MINISTERIO LIRIANO DO Mar 31, 2021 21:00
[2021-03-28] MEDS ORDERED: IV NORMAL SALINE 1,000ML 1,000 ML IV ONE (13:30)
[2021-03-28 13:42] LABS: BILIRUBIN,URINE NEG (NEG); CLARITY,URINE CLEAR; COLOR,URINE YELLOW; GLUCOSE,URINE NEG (NEG); NITRITE,URINE NEG (NEG); UROBILINOGEN,URINE 0.2 mg/dL (0.2 mg/dL)
[2021-03-28 13:43] LABS: BACTERIA,URINE 0 /HPF (0-FEW); RBC,URINE 0 /HPF (0-2); WBC,URINE 0 /HPF (0-4)
[2021-03-28] MEDS ORDERED: IOHEXOL 300 MG/ML 75 ML VIAL. IV ONE (13:45)
[2021-03-28 14:12] LABS: BASO # 0.1 x10^3/uL (0.0-0.2); BASO % 1 % (0-3); EOS # 0.1 x10^3/uL (0.0-0.7); EOS % 1 % (0-3); HEMATOCRIT 42.9 % (39.0-53.0); HEMOGLOBIN 14.5 g/dL (13.0-17.5); LYMPH # 1.2 x10^3/uL (1.0-4.8); LYMPH % 15 % (24-48); MEAN CORPUSCULAR HEMOGLOBIN 29 pg (25-35); MEAN CORPUSCULAR HGB CONC 34 g/dL (31-37); MEAN CORPUSCULAR VOLUME 87 fL (79-100); MONO # 0.7 x10^3/uL (0.0-1.1); MONO % 9 % (0-9); NEUT # 5.9 x10^3uL (1.8-7.7); NEUT % 74 % (31-73); PLATELET COUNT 343 x10^3/uL (140-400); RED BLOOD COUNT 4.91 x10^6/uL (4.30-5.70)
[2021-03-28 14:16] LABS: CALCIUM 8.2 mg/dL (8.5-10.1); CREATININE 0.6 mg/dL (0.7-1.3); GFR 151.6; POTASSIUM 3.7 mmol/L (3.5-5.1)
[2021-03-28 14:22] LABS: ALBUMIN 3.4 g/dL (3.4-5.0); ALBUMIN/GLOBULIN RATIO 1.1 (1.0-1.7); TOTAL BILIRUBIN 0.5 mg/dL (0.2-1.0); TOTAL PROTEIN 6.5 g/dL (6.4-8.2)
--- NOTE | 2021-03-28 15:19 | RAD ---
INDICATION: Reason: ABD PAIN CONTRAST ORDERED WAITING ON LABS / Spl. Instructions: / History: . COMPARISON: February 2018 TECHNIQUE: Axial CT images obtained through the abdomen and pelvis with contrast. One or more of the following individualized dose reduction techniques were utilized for this examinat ion: 1. Automated exposure control; 2. Adjustment of the mA and/or kV according to patient size; 3 . Use of iterative reconstruction technique. FINDINGS: Abdominal aorta is not aneurysmal. Small fat-containing right inguinal hernia. No peripancreatic fluid collection. Spleen unremarkable. Urinary bladder is somewhat distended at time of exam. No hydronephrosis. No periappendiceal inflammatory changes. No dilated loops of bowel to suggest obstruction. Osseous excrescence off of the left iliac wing. IMPRESSION: * No evidence of bowel obstruction or appendicitis. * Urinary bladder is dilated at time of exam. This could be from the patient not urinating recently unless they are having symptoms of poor emptying. Electronically signed by: Alvaro Valles MD (03/28/2021 3:16 PM) [id number]
[2021-03-28 15:36] VITALS: BP 142/79
== END 2021-03-28 15:36 | disposition home or self-care (01) ==
LOC: ER 13:08
DX: R10.31 Right lower quadrant pain (principal)
CPT/HCPCS: 36415; 74177; 80053; 81001; 83690; 85025; 96360; 99285; J7030; Q9967

== ENCOUNTER 2021-04-26 00:19 | Emergency (ER) | payer SELFPAY ==
[~2021-04-26] VITALS: Ht 179.1 cm; Wt 78.9 kg
--- NOTE | 2021-04-26 00:40 | PHYS DOC ---
Past History Past Medical History: Alcoholism, Constipation, Other Additional Past Medical Histor: drug abuse, hernia Past Surgical History: Other Additional Past Surgical Histo: eye surgery X 6 Smoking: Chew Alcohol Use: None Drug Use: None General Adult HPI: HPI: ".. I am just .. drunk.. ".." I usually don't pass out.. but I did do 8 shots of whisky in a row.. I was at the [employer].. I could not walk so paramedics made me come in... " Patient is a 35 year old male who presents with above hx and complaints of intoxication to the point that he had unstable gait. Patient advised that he consumed at least 8 shots of whiskey in a row. Patient does have a history of previous alcohol abuse. No history of other health problems. Patient does not follow-up with primary care. Patient did not call a friend or family to come pick him up. Stated he was forced to come into the emergency department since he could not ambulate late well at the scene. No recent travel. No specific ill contacts. Patient does smoke tobacco and sometimes marijuana. Review of Systems: Review of Systems: Constitutional: Denies fever or chills. Complains of unsteady gait and being intoxicated Eyes: Denies change in visual acuity HENT: Denies nasal congestion or sore throat Respiratory: Denies cough or shortness of breath Cardiovascular: Denies chest pain or edema GI: Denies abdominal pain, nausea, vomiting, bloody stools or diarrhea : Denies dysuria Musculoskeletal: Denies back pain or joint pain Integument: Denies rash Neurologic: Denies headache, focal weakness or sensory changes Endocrine: Denies polyuria or polydipsia Lymphatic: Denies swollen glands Psychiatric: Denies depression or anxiety Family History: Family History: Noncontributory to presentation Current Medications: Current Meds: See nursing for home meds Allergies: Allergies: Allergies Coded Allergies Type Severity Reaction Last Updated Verified No Known Allergies Allergy Unknown 09/30/16 Yes Physical Exam: PE: Constitutional: no acute distress, intoxicated in appearance. [] HENT: Normocephalic, atraumatic, bilateral external ears normal, oropharynx moist, no oral exudates, nose normal. [] Eyes: PERRLA, EOMI, conjunctiva injected, no discharge. [] Neck: Normal range of motion, no tenderness, supple, no stridor. [] Cardiovascular: Tach cardia heart rate regular rhythm, no murmur [] Lungs & Thorax: Bilateral breath sounds equal apex with scattered wheezes auscultation [] Abdomen: Bowel sounds normal, soft, no tenderness, no masses, no pulsatile masses. [] Skin: Warm, dry, no erythema, no rash. No obvious injuries Back: No tenderness, no CVA tenderness. [] Extremities: No tenderness, no cyanosis, no clubbing, ROM intact, no edema. [] Neurologic: Alert and oriented X 3, normal motor function, normal sensory function, no focal deficits noted. Slightly off on [id number]. Remote Sensing Advisor equal. Unsteady gait. DTRs +2 patella and brachial. Psychologic: Affect normal, judgement appears to be impaired of alcohol,, mood normal. [] EKG: EKG: [] Radiology/Procedures: Radiology/Procedures: [] Heart Score: C/O Chest Pain: N/A Risk Factors: Risk Factors: DM, Current or recent (<one month) smoker, HTN, HLP, family history of CAD, obesity. Risk Scores: Score 0 - 3: 2.5% MACE over next 6 weeks - Discharge Home Score 4 - 6: 20.3% MACE over next 6 weeks - Admit for Clinical Observation Score 7 - 10: 72.7% MACE over next 6 weeks - Early Invasive Strategies Course & Med Decision Making: Course & Med Decision Making Pertinent Labs and Imaging studies reviewed. (See chart for details) Received patient patient encouraged to avoid further alcohol use. Patient encouraged to take a multivitamin daily . Patient served in the emergency department. Patient consider alcohol rehab. Patient discharge after he was able to ambulate without problems. Patient is to call and member to pick him up, Or patient may take a cab home. Patient return if any concerns. Impression: 1. Alcohol Intoxication-241 [] Dragon Disclaimer: Dragon Disclaimer: This electronic medical record was generated, in whole or in part, using a voice recognition dictation system. Departure Departure: Referrals: ANGELA MOORE MD (PCP) Gwendolyn Disclaimer This chart was dictated in whole or in part using Voice Recognition software in a busy, high-work load, and often noisy Emergency Department environment. It may contain unintended and wholly unrecognized errors or omissions. PAULETTE FLORES MD Apr 26, 2021 00:40
[2021-04-26] MEDS ORDERED: PRENATAL MULTIVITAMIN TABLET. PO ONE (00:45)
[2021-04-26] MEDS ORDERED: IV RINGERS SOLUTION,LACTATED 1,000 ML IV SCH (00:45)
[2021-04-26 01:14] LABS: BASO # 0.1 x10^3/uL (0.0-0.2); BASO % 1 % (0-3); EOS # 0.1 x10^3/uL (0.0-0.7); EOS % 1 % (0-3); HEMATOCRIT 45.6 % (39.0-53.0); HEMOGLOBIN 15.4 g/dL (13.0-17.5); LYMPH # 1.7 x10^3/uL (1.0-4.8); LYMPH % 19 % (24-48); MEAN CORPUSCULAR HEMOGLOBIN 30 pg (25-35); MEAN CORPUSCULAR HGB CONC 34 g/dL (31-37); MEAN CORPUSCULAR VOLUME 87 fL (79-100); MONO # 0.6 x10^3/uL (0.0-1.1); MONO % 7 % (0-9); NEUT # 6.4 x10^3uL (1.8-7.7); NEUT % 72 % (31-73); PLATELET COUNT 396 x10^3/uL (140-400); RED BLOOD COUNT 5.24 x10^6/uL (4.30-5.70); RED CELL DISTRIBUTION WIDTH 13.6 % (11.5-14.5); WHITE BLOOD COUNT 8.9 x10^3/uL (4.0-11.0)
[2021-04-26 01:24] LABS: CALCIUM 8.8 mg/dL (8.5-10.1); CREATININE 0.7 mg/dL (0.7-1.3); GFR 126.9; POTASSIUM 3.2 mmol/L (3.5-5.1)
[2021-04-26] MEDS ORDERED: MULTIVITAMIN with MINERAL TABLET. ONE (01:54)
[2021-04-26] MEDS ORDERED: FOLIC ACID 1 MG TABLET ONE (01:54)
[2021-04-26] MEDS ORDERED: MULTIVITAMIN with MINERAL TABLET. PO ONE (02:00)
[2021-04-26] MEDS ORDERED: FOLIC ACID 1 MG TABLET PO ONE (02:00)
[2021-04-26 03:00] VITALS: BP 119/72
== END 2021-04-26 03:15 | disposition home or self-care (01) ==
LOC: ER 00:19
DX: F10.229 Alcohol dependence with intoxication, unspecified (principal); Y90.8 Blood alcohol level of 240 mg/100 ml or more; F17.220 Nicotine dependence, chewing tobacco, uncomplicated
CPT/HCPCS: 36415; 80048; 85025; 96360; 99283; G0480; J7120

== ENCOUNTER 2021-05-27 02:54 | Emergency (ER) | payer SELFPAY ==
[~2021-05-27] VITALS: Ht 179.1 cm; Wt 79.5 kg
--- NOTE | 2021-05-27 03:19 | PHYS DOC ---
Past History Past Medical History: Alcoholism, Constipation, Other Additional Past Medical Histor: drug abuse, hernia (KATERYNA THORNTON DO) Past Surgical History: Other Additional Past Surgical Histo: eye surgery X 6 (KATERYNA THORNTON DO) Smoking: Chew Alcohol Use: Heavy Drug Use: None (KATERYNA THORNTON DO) Adult General HPI HPI Patient is a 35-year-old male presenting via POV for multiple complaints. First he complains of right inguinal pain. States he has a known inguinal hernia that has been there for the past 6 years. Reports it pops out several times throughout most days of the week. Reports about 6 hours ago a significant amount of intra-abdominal contents dropped through into scrotum causing excruciating pain. He has never had this type of swelling, pain intrascrotal c ontents before. Typically symptoms self resolved but his did not concerning him prompting him to come in for evaluation. In addition, patient also reports 1 to 2 weeks of worsening mental health issues. Cites life stressors but does not go into detail about these. Denies any HI but does admit to ongoing suicidal ideation with plan and recent self-harm, states he drank whiskey earlier this evening and caused several self-induced lacerations to left wrist to inflict pain on himself. He has no other known medical issues and takes no other known medications on a daily basis (KATERYNA THORNTON DO) Review of Systems Review of Systems Fourteen body systems of review of systems have been reviewed. See HPI for pertinent positives and negative responses, other mason all other systems are negative, non-pertinent or non-contributory (KATERYNA THORNTON DO) Allergies Allergies Allergies Coded Allergies Type Severity Reaction Last Updated Verified No Known Allergies Allergy Unknown 09/30/16 Yes (KATERYNA THORNTON DO) Physical Exam Physical Exam Constitutional: Well developed, well nourished, no acute distress, non-toxic appearance. HENT: Normocephalic, atraumatic, bilateral external ears normal, oropharynx moist, no oral exudates, nose normal. Eyes: PERRLA, EOMI, conjunctiva normal, no discharge. Neck: Normal range of motion, no tenderness, supple, no stridor. Cardiovascular: Heart rate regular, sinus rhythm, no murmurs rubs or gallops Lungs & Thorax: Bilateral breath sounds clear to auscultation Abdomen: Bowel sounds normal, soft, no tenderness, no masses, no pulsatile masses. Nonsurgical abdomen, no peritoneal signs. exam performed with unremarkable palpable and/or visual findings of penis, patient scrotum noticeably enlarged with palpable abnormality and fullness consistent with of intra-abdominal contents present in right suprapubic region in addition to scrotum more prevalent on right than left. There was significant pain with reduction attempt at bedside but hernia was reducible Skin: Warm, dry, no erythema, no rash. Numerous vertical lacerations present to left wrist approximately 3 inches in length and all superficial in nature Back: No tenderness, no CVA tenderness. Extremities: No tenderness, no cyanosis, no clubbing, ROM intact, no edema. Neurologic: Alert and oriented X 3, grossly normal motor & sensory function, no focal deficits noted. Psychologic: Odd affect, depressed mood (KATERYNA THORNTON DO) Current Patient Data Vital Signs Vital Signs Date Time Temp Pulse Resp B/P (MAP) Pulse Ox O2 Delivery O2 Flow Rate FiO2 05/27/21 03:00 97.9 92 20 139/92 (108) 98 Room Air Vital Signs Date Time Temp Pulse Resp B/P (MAP) Pulse Ox O2 Delivery O2 Flow Rate FiO2 05/27/21 03:05 97.9 92 20 139/92 (108) 98 Room Air Lab Results Laboratory Tests Test 05/27/21 03:40 White Blood Count 10.4 x10^3/uL Red Blood Count 4.93 x10^6/uL Hemoglobin 14.5 g/dL Hematocrit 43.4 % Mean Corpuscular Volume 88 fL Mean Corpuscular Hemoglobin 30 pg Mean Corpuscular Hemoglobin Concent 34 g/dL Red Cell Distribution Width 14.1 % Platelet Count 361 x10^3/uL Neutrophils (%) (Auto) 75 % Lymphocytes (%) (Auto) 18 % Monocytes (%) (Auto) 6 % Eosinophils (%) (Auto) 1 % Basophils (%) (Auto) 1 % Neutrophils # (Auto) 7.7 x10^3uL Lymphocytes # (Auto) 1.9 x10^3/uL Monocytes # (Auto) 0.6 x10^3/uL Eosinophils # (Auto) 0.1 x10^3/uL Basophils # (Auto) 0.1 x10^3/uL Sodium Level 143 mmol/L Potassium Level 3.8 mmol/L Chloride Level 106 mmol/L Carbon Dioxide Level 29 mmol/L Anion Gap 8 Blood Urea Nitrogen 15 mg/dL Creatinine 1.1 mg/dL Estimated GFR (Cockcroft-Gault) 75.3 BUN/Creatinine Ratio 14 Glucose Level 83 mg/dL Lactic Acid Level 0.8 mmol/L Calcium Level 8.7 mg/dL Total Bilirubin 0.3 mg/dL Aspartate Amino Transf (AST/SGOT) 10 U/L Alanine Aminotransferase (ALT/SGPT) 18 U/L Alkaline Phosphatase 80 U/L Total Protein 7.5 g/dL Albumin 3.8 g/dL Albumin/Globulin Ratio 1.0 Ethyl Alcohol Level < 10 mg/dL SARS-CoV-2 Antigen (Rapid) Negative Current Medications Medications (Trade) Dose Ordered Sig/Miki Route PRN Reason Start Time Stop Time Status Last Admin Dose Admin Iohexol (Omnipaque 300 Mg/ml) 75 ml 1X ONCE IV 05/27/21 04:00 05/27/21 04:01 DC 05/27/21 04:08 Info (Do NOT chart on this entry -- for MONITORING) 1 each PRN DAILY PRN MC SEE COMMENTS 05/27/21 04:00 05/29/21 03:59 (KATERYNA THORNTON DO) EKG EKG [] (KATERYNA THORNTON DO) Radiology/Procedures Radiology/Procedures CT abdomen pelvis with contrast dated 05/27/2021. No comparison available. Clinical data indication: Pain. Right inguinal hernia.. TECHNIQUE: Contiguous axial imaging the abdomen pelvis performed following the intravenous administration of 75 cc Omnipaque 300. One or more of the following individualized dose reduction techniques were utilized for this examination: 1. Automated exposure control 2. Adjustment of the mA and/or kV according to patient size 3. Use of iterative reconstruction technique. FINDINGS: There is a large right inguinal hernia that contains portions of small bowel. The proximal bowel does not appear significantly dilated. The appendix is normal in caliber and remains within the pelvis. No free fluid or lymphadenopathy. No inflammatory changes in the mesentery. There are mesenteric vessels that extend into the hernia sac. Liver, spleen, pancreas, adrenal glands, kidneys and gallbladder are unremarkable. No hydronephrosis. Urinary bladder is mildly distended. No wall thickening. Prostate gland is normal in size. No significant left inguinal hernia. No pelvic adenopathy or free fluid. Limited images of lung bases are clear. Heart size within normal limits. No pleural or pericardial effusion. Bone windows show no acute findings. Multilevel spondylosis. IMPRESSION: 1. Large right inguinal hernia containing small bowel. No evidence of bowel obstruction. 2. Otherwise no acute findings. Normal appendix. Electronically signed by: Mikel Monte MD (05/27/2021 4:29 AM) [facility] (KATERYNA THORNTON DO) Heart Score C/O Chest Pain: No Risk Factors: Risk Factors: DM, Current or recent (<one month) smoker, HTN, HLP, family history of CAD, obesity. Risk Scores: Risk Factors: DM, Current or recent (<one month) smoker, HTN, HLP, family history of CAD, obesity. (KATERYNA THORNTON DO) Course & Med Decision Making Course & Med Decision Making ABCs unremarkable HPI physical exam and comprehensive ER work-up nonconcerning for any emergent or surgical issues. Patient's large right inguinal hernia chronic and typically retracts when supine sleeping. Hernia was reducible after ice pack and laying supine while in ER Patient suicidal ideation prompted PAT team to be consulted. Patient evaluated by qualified mental health professional who reviewed any appropriate supporting documentation and previous available medical records and feels patient meets criteria for admission to mental health facility. No noteworthy events throughout entirety of shift pending inpatient psych transfer. Comprehensive signout given to oncoming physician a.m. 05/27/2021 (KATERYNA THORNTON DO) Course & Med Decision Making The behavioral team coordinated an inpatient bed for the patient. Prior to transfer, the patient decided to walk out of the ER without telling anyone. He was officially discharged as he was going to [facility]. He was not an involuntary hold so he was allowed to leave on his own. (MINISTERIO LIRIANO DO) Dragon Disclaimer Dragon Disclaimer This electronic medical record was generated, in whole or in part, using a voice recognition dictation system. (KATERYNA THORNTON DO) Departure Departure: Impression: Primary Impression: Suicidal ideation Additional Impression: Right inguinal hernia Referrals: ANGELA MOORE MD (PCP) Problem Qualifiers KATERYNA THORNTON DO May 27, 2021 03:19 MINISTERIO LIRIANO DO May 27, 2021 16:23
[2021-05-27] MEDS ORDERED: IOHEXOL 300 MG/ML 75 ML VIAL. IV ONE (04:00)
[2021-05-27] MEDS ORDERED: CONTRAST GIVEN. MC PRN (04:00)
[2021-05-27 04:07] LABS: CALCIUM 8.7 mg/dL (8.5-10.1); CREATININE 1.1 mg/dL (0.7-1.3); GFR 75.3; POTASSIUM 3.8 mmol/L (3.5-5.1)
[2021-05-27 04:12] LABS: ALBUMIN 3.8 g/dL (3.4-5.0); TOTAL BILIRUBIN 0.3 mg/dL (0.2-1.0); TOTAL PROTEIN 7.5 g/dL (6.4-8.2)
[2021-05-27 04:28] LABS: BASO # 0.1 x10^3/uL (0.0-0.2); BASO % 1 % (0-3); EOS # 0.1 x10^3/uL (0.0-0.7); EOS % 1 % (0-3); HEMATOCRIT 43.4 % (39.0-53.0); HEMOGLOBIN 14.5 g/dL (13.0-17.5); LYMPH # 1.9 x10^3/uL (1.0-4.8); LYMPH % 18 % (24-48); MEAN CORPUSCULAR HEMOGLOBIN 30 pg (25-35); MEAN CORPUSCULAR HGB CONC 34 g/dL (31-37); MEAN CORPUSCULAR VOLUME 88 fL (79-100); MONO # 0.6 x10^3/uL (0.0-1.1); MONO % 6 % (0-9); NEUT # 7.7 x10^3uL (1.8-7.7); NEUT % 75 % (31-73); PLATELET COUNT 361 x10^3/uL (140-400); RED BLOOD COUNT 4.93 x10^6/uL (4.30-5.70); RED CELL DISTRIBUTION WIDTH 14.1 % (11.5-14.5); WHITE BLOOD COUNT 10.4 x10^3/uL (4.0-11.0)
--- NOTE | 2021-05-27 04:32 | RAD ---
CT abdomen pelvis with contrast dated 05/27/2021. No comparison available. Clinical data indication: Pain. Right inguinal hernia.. TECHNIQUE: Contiguous axial imaging the abdomen pelvis performed following the intravenous administration of 75 cc Omnipaque 300. One or more of the following individualized dose reduction techniques were utilized for this examinat ion: 1. Automated exposure control 2. Adjustment of the mA and/or kV according to patient size 3. Use of iterative reconstruction technique. FINDINGS: There is a large right inguinal hernia that contains portions of small bowel. The proximal bowel does not appear significantly dilated. The appendix is normal in caliber and remains within the pelvis. N o free fluid or lymphadenopathy. No inflammatory changes in the mesentery. There are mesenteric vesse ls that extend into the hernia sac. Liver, spleen, pancreas, adrenal glands, kidneys and gallbladder are unremarkable. No hydronephrosis. Urinary bladder is mildly distended. No wall thickening. Prostate gland is normal in size. No signifi cant left inguinal hernia. No pelvic adenopathy or free fluid. Limited images of lung bases are clear. Heart size within normal limits. No pleural or pericardial ef fusion. Bone windows show no acute findings. Multilevel spondylosis. IMPRESSION: 1. Large right inguinal hernia containing small bowel. No evidence of bowel obstruction. 2. Otherwise no acute findings. Normal appendix. Electronically signed by: Mikel Monte MD (05/27/2021 4:29 AM) [facility]
[2021-05-27 05:23] LABS: BILIRUBIN,URINE NEG (NEG); CLARITY,URINE CLEAR; COLOR,URINE YELLOW; GLUCOSE,URINE NEG (NEG); NITRITE,URINE NEG (NEG); UROBILINOGEN,URINE 0.2 mg/dL (0.2 mg/dL)
[2021-05-27 05:24] LABS: BACTERIA,URINE 0 /HPF (0-FEW); BARBITURATES NEG (NEG); BENZODIAZEPINES NEG (NEG); CANNABINOIDS NEG (NEG); COCAINE POS (NEG); METHADONE NEG (NEG); OPIATES POS (NEG); PHENCYCLIDINE NEG (NEG); RBC,URINE 0 /HPF (0-2); SQUAMOUS EPITHELIAL CELL,UR OCC /LPF; WBC,URINE RARE /HPF (0-4)
[2021-05-27 05:25] LABS: AMPHETAMINE/METHAMPHETAMINE POS (NEG)
[2021-05-27 11:30] VITALS: BP 132/73
== END 2021-05-27 12:13 | disposition home or self-care (01) ==
LOC: ER 02:54
DX: S61.512A Laceration without foreign body of left wrist, initial encounter (principal); R45.851 Suicidal ideations; K40.90 Unilateral inguinal hernia, without obstruction or gangrene, not specified as recurrent; F10.20 Alcohol dependence, uncomplicated; F17.220 Nicotine dependence, chewing tobacco, uncomplicated; Z20.822 Contact with and (suspected) exposure to COVID-19; Y90.0 Blood alcohol level of less than 20 mg/100 ml; X78.8XXA Intentional self-harm by other sharp object, initial encounter; Y93.89 Activity, other specified; Y92.89 Other specified places as the place of occurrence of the external cause; Y99.8 Other external cause status
CPT/HCPCS: 36415; 74177; 80053; 80307; 81001; 83605; 85025; 87426; 99285; C9803; G0480; Q9967; U0003

== ENCOUNTER 2021-06-19 02:32 | Emergency (ER) | payer SELFPAY ==
[~2021-06-19] VITALS: Ht 179.1 cm; Wt 79.5 kg
--- NOTE | 2021-06-19 02:45 | PHYS DOC ---
Past History Past Medical History: Alcoholism, Constipation, Other Additional Past Medical Histor: drug abuse, hernia; scoliosis; retinal skesis sara since childhood;lazy eye Past Surgical History: Other Additional Past Surgical Histo: eye surgery X 6; cataract removal rt eye Smoking: Chew Alcohol Use: Heavy Drug Use: None General Adult EDM: Chief Complaint: ABDOMINAL PAIN HPI: HPI: 35-year-old male presents via EMS with known chronic right inguinal hernia presents with worsening pain and swelling x10 hours. Patient reports he has been unable to reduce the hernia like normal. Reports worsening pain. Reports some associated nausea. Patient reports he had previously followed with a general surgeon who instructed him that given his lack of insurance would be unable to surgically repair the hernia became strangulated or incarcerated. Patient denies known trauma. Reports unable to walk secondary to pain. Patient reports last ate at 2030 last night but last drank at midnight. Review of Systems: Review of Systems: Constitutional: Denies fever or chills Eyes: Denies redness or eye pain HENT: Denies nasal congestion or sore throat Respiratory: Denies cough or shortness of breath Cardiovascular: Denies chest pain or palpitations GI: Reports right lower abdominal and groin pain and nausea : Denies dysuria or hematuria Musculoskeletal: Denies back pain or joint pain Integument: Denies rash or skin lesions Neurologic: Denies headache, focal weakness or sensory changes Complete systems were reviewed and found to be within normal limits, except as documented in this note. Current Medications: Current Meds: Current Medications Medications (Trade) Dose Ordered Sig/Miki Start Time Stop Time Status Last Admin Dose Admin Fentanyl Citrate (Fentanyl 2ml Vial) 50 mcg PRN Q2HR PRN 06/19/21 02:45 UNV Ondansetron HCl (Zofran) 4 mg 1X ONCE 06/19/21 02:45 06/19/21 02:46 UNV Sodium Chloride 1,000 ml @ 1,000 mls/hr 1X ONCE 06/19/21 02:45 06/19/21 03:44 UNV Allergies: Allergies: Allergies Coded Allergies Type Severity Reaction Last Updated Verified No Known Allergies Allergy Unknown 05/27/21 Yes Physical Exam: PE: Constitutional: Well developed, well nourished, appears uncomfortable HENT: Normocephalic, atraumatic Eyes: CVonjunctiva normal, no discharge Neck: Normal range of motion, supple Lungs & Thorax: No respiratory distress, equal chest rise and fall Abdomen: Soft, right pubic swelling extending into right scrotal region with e xquisite focal tenderness on palpation, unable to reduce Skin: Warm, dry, no erythema, no rash Extremities: No tenderness, ROM intact, no edema Neurologic: Alert and oriented X 3, no focal deficits noted Psychologic: Affect normal, judgment normal EKG: EKG: [] Radiology/Procedures: Radiology/Procedures: PROCEDURE: CT ABD PELV W/ IV CONTRST ONLY Examination: CT of the abdomen pelvis with IV contrast HISTORY: History of inguinal hernia COMPARISON: 05/27/2021 TECHNIQUE: Axial CT images of the abdomen pelvis were performed with IV contrast. Coronal and sagittal reformats are performed. Exposure: One or more of the following individualized dose reduction techniques were utilized for this examination: 1. Automated exposure control 2. Adjustment of the mA and/or kV according to patient size 3. Use of iterative reconstruction technique. FINDINGS: The bibasilar lungs are clear. No evidence of free air identified in the abdomen. The liver, spleen, adrenals, pancreas grossly appears unremarkable. The gallbladder is mildly distended. Moderate fluid distended stomach with multiple dilated small bowel loops identified in the abdomen proximal to the moderate size inguinal hernia containing loops of small bowel within likely incarcerated hernia..There is fat stranding identified about the dilated small bowel loops. Feces and gas noted in the colon. IMPRESSION: 1. Moderate right-sided inguinal hernia containing loops of small bowel with dilated small bowel loops proximal to the hernia likely incarcerated hernia. FOR INTERNAL CODING PURPOSES Critical result: Findings discussed with Dr. Simpson at 06/19/2021 3:39 AM. RESULT CODE: (C) Electronically signed by: Ajith Nayak MD (06/19/2021 3:40 AM) [id number] Heart Score: C/O Chest Pain: N/A Course & Med Decision Making: Course & Med Decision Making Pertinent Labs and Imaging studies reviewed. (See chart for details) Patient presents with HPI and physical exam concerning for incarcerated right inguinal hernia. Pain/nausea addressed. IV fluid hydration given. Patient reports last ate at 2030 last night but did drink up to midnight. Patient kept n.p.o. Labs obtained and posted to chart. CT abdomen/pelvis obtained with findings confirming concern for incarcerated hernia. Patient requiring transfer to facility with general surgery coverage. Discussed case with Dr. Hendrickson (General Surgery) at [facility] who is in agreement with transfer under care of hospitalist. Discussed with Dr. Whitt (hospitalist) at [facility] who is in agreement with transfer for admission. Discussed findings and plan with patient, who acknowledges understa nding and agreement. Dragon Disclaimer: Dragmaycol Disclaimer: This electronic medical record was generated, in whole or in part, using a voice recognition dictation system. Departure Departure: Impression: Primary Impression: Incarcerated right inguinal hernia Disposition: 02 SHORT TERM [facility]OSPITAL ([facility]- Dr. Whitt (hospitalist) accepting; Dr. Hendrickson (general surgery) consulted.) Condition: STABLE Referrals: AGNELA MOORE MD (PCP) ALMAZ SIMPSON DO Jun 19, 2021 02:45
[2021-06-19] MEDS ORDERED: CONTRAST GIVEN. MC PRN (03:00)
[2021-06-19] MEDS ORDERED: ONDANSETRON PF 4 MG/2 ML VIAL. IVP ONE (03:00)
[2021-06-19] MEDS ORDERED: IV NORMAL SALINE 1,000ML 1,000 ML IV ONE (03:00)
[2021-06-19] MEDS ORDERED: IOHEXOL 300 MG/ML 75 ML VIAL. IV ONE (03:00)
--- NOTE | 2021-06-19 03:42 | RAD ---
Examination: CT of the abdomen pelvis with IV contrast HISTORY: History of inguinal hernia COMPARISON: 05/27/2021 TECHNIQUE: Axial CT images of the abdomen pelvis were performed with IV contrast. Coronal and sagitta l reformats are performed. Exposure: One or more of the following individualized dose reduction techniques were utilized for thi s examination: 1. Automated exposure control 2. Adjustment of the mA and/or kV according to patient size 3. Use of iterative reconstruction technique. FINDINGS: The bibasilar lungs are clear. No evidence of free air identified in the abdomen. The liver, spleen, adrenals, pancreas grossly appears unremarkable. The gallbladder is mildly distended. Moderate fluid distended stomach with multiple dilated small bowel loops identified in the abdomen proximal to the m oderate size inguinal hernia containing loops of small bowel within likely incarcerated hernia..There is fat stranding identified about the dilated small bowel loops. Feces and gas noted in the colon. IMPRESSION: 1. Moderate right-sided inguinal hernia containing loops of small bowel with dilated small bowel loop s proximal to the hernia likely incarcerated hernia. FOR INTERNAL CODING PURPOSES Critical result: Findings discussed with Dr. Pryor at 06/19/2021 3:39 AM. RESULT CODE: (C) Electronically signed by: Ajith Nayak MD (06/19/2021 3:40 AM) [id number]
[2021-06-19 03:59] LABS: BASO # 0.1 x10^3/uL (0.0-0.2); BASO % 1 % (0-3); EOS # 0.1 x10^3/uL (0.0-0.7); EOS % 1 % (0-3); HEMATOCRIT 45.3 % (39.0-53.0); HEMOGLOBIN 15.4 g/dL (13.0-17.5); LYMPH # 1.5 x10^3/uL (1.0-4.8); LYMPH % 16 % (24-48); MEAN CORPUSCULAR HEMOGLOBIN 29 pg (25-35); MEAN CORPUSCULAR HGB CONC 34 g/dL (31-37); MEAN CORPUSCULAR VOLUME 87 fL (79-100); MONO # 0.8 x10^3/uL (0.0-1.1); MONO % 8 % (0-9); NEUT # 7.3 x10^3uL (1.8-7.7); NEUT % 75 % (31-73); PLATELET COUNT 353 x10^3/uL (140-400); RED BLOOD COUNT 5.23 x10^6/uL (4.30-5.70); RED CELL DISTRIBUTION WIDTH 13.6 % (11.5-14.5); WHITE BLOOD COUNT 9.7 x10^3/uL (4.0-11.0)
[2021-06-19] MEDS ORDERED: MORPHINE SULFATE 4 MG/ML DISP.SYRIN. IV ONE (04:00)
[2021-06-19 04:13] LABS: BILIRUBIN,URINE NEG (NEG); CLARITY,URINE CLEAR; COLOR,URINE YELLOW; GLUCOSE,URINE NEG (NEG); NITRITE,URINE NEG (NEG); RBC,URINE 0 /HPF (0-2); UROBILINOGEN,URINE 0.2 mg/dL (0.2 mg/dL)
[2021-06-19 04:14] LABS: BACTERIA,URINE FEW /HPF (0-FEW); SQUAMOUS EPITHELIAL CELL,UR OCC /LPF
[2021-06-19 05:10] VITALS: BP 143/56
[2021-06-19 05:42] LABS: ALBUMIN 3.7 g/dL (3.4-5.0); CALCIUM 9.2 mg/dL (8.5-10.1); GFR 84.1; POTASSIUM 3.4 mmol/L (3.5-5.1); TOTAL BILIRUBIN 0.5 mg/dL (0.2-1.0); TOTAL PROTEIN 7.5 g/dL (6.4-8.2)
[2021-06-19 05:55] LABS: AMPHETAMINE/METHAMPHETAMINE NEG (NEG); BARBITURATES NEG (NEG); BENZODIAZEPINES NEG (NEG); CANNABINOIDS NEG (NEG); COCAINE POS (NEG); METHADONE NEG (NEG); OPIATES POS (NEG); PHENCYCLIDINE NEG (NEG)
== END 2021-06-19 05:20 | disposition short-term general hospital (02) ==
LOC: ER 02:32
DX: K40.30 Unilateral inguinal hernia, with obstruction, without gangrene, not specified as recurrent (principal); F10.20 Alcohol dependence, uncomplicated; F17.220 Nicotine dependence, chewing tobacco, uncomplicated; Z20.822 Contact with and (suspected) exposure to COVID-19; Y90.0 Blood alcohol level of less than 20 mg/100 ml
CPT/HCPCS: 36415; 74177; 80053; 80307; 81001; 83605; 83690; 83735; 85025; 87426; 96361; 96374; 96375; 96376; 99285; C9803; J2270; J2405; J3010; J7030; Q9967; U0003